=== PATIENT | male | born 1960 | race Caucasian/White ===

== ENCOUNTER 2018-06-17 08:58 | Day surgery (SDC) | payer OTHER ==
[~2018-06-17] VITALS: Ht 175.3 cm; Wt 82.6 kg
[~2018-06-17 08:58] MED LIST: ENALAPRIL MALEAT5 MG PO
--- NOTE | 2018-06-17 10:58 | NUR ---
06/17/18 1058 Sheets,Jenniffer 1047 PT ARRIVED TO PACU ON 2L VIA NC, PT REACTIVE TO TACTILE STIMULI. PERIOD OF APNEA NOTED, RN WOKE PT WITH VERBAL STIMULI AND ENCOURAGED PT TO DEEP BREATHE. PT REORINETED TO PACU. 1053 HOB INCREASED AND O2 REMOVED. PT ASLEEP OFF AND 0N, RESP EVEN AND UNLABORED. PT DENIES NAUSEA AND PAIN.
--- NOTE | 2018-06-18 11:43 | OR ---
[facility] [address] [place], [place] [address] Signed DATE OF OPERATION: 06/17/2018 SURGEON: Neris Coto MD PREOPERATIVE DIAGNOSES: 1. Episodic upper abdominal pain, possible clinical reflux symptoms. 2. Episode of lower abdominal pain suggestive of diverticulitis. 3. Diarrhea alternating with constipation. POSTOPERATIVE DIAGNOSES: 1. Small hiatal hernia. 2. Minimal proximal gastritis. 3. Gastric polyps (benign). 4. Minimal diverticular changes of sigmoid and two diminutive polyps. PROCEDURES: 1. Esophagogastroduodenoscopy with biopsy. 2. Total colonoscopy to cecum with cold morcellation polypectomy x2. ANESTHESIA: Intravenous sedation, fentanyl 50 mcg and Versed 5 mg (total). INDICATION: A 58-year-old white man, a patient of Richelle Jackosn FMP. He lives in [place], [place]. He underwent upper endoscopy and colonoscopy in 2012, 6 years ago. He is referred by Richelle Jackson FMP for consideration of recent groin and abdominal pain as well as diarrhea problems from time to time. In February, he noted groin pain, which radiated to the testicles. By April, pain was higher and almost disabling from time to time. This was on the left side. His urination was without problem. He is empirically treated with Bactrim for possible diverticular disease. He is not known to have nephrolithiasis. He has had no blood per rectum, but has had alternating diarrhea with constipation. He treated himself with Allerzyme, a proprietary medication, which was of uncertain benefit. His upper endoscopy and colonoscopy from 2012 showed a poor flap valve and a normal colon. He has no family history of colon, esophageal, or gastric cancer. He did have cholecystectomy in 2003. He is admitted at this time to undergo upper endoscopy and colonoscopy to better characterize his symptoms. The risks of bleeding, infection, and perforation were reviewed with him. He understands and wished to proceed. FINDINGS: Electronically Signed By: NERIS COTO MD 06/18/18 1143 PATIENT NAME: CELINA ESPINOZA OPERATIVE REPORT DATE OF : 64 REPORT #: [id number] PHYSICIAN: NERIS COTO MD PCP: RICHELLE JACKSON Stef-Christiana REPORT IS CONFIDENTIAL AND NOT TO BE RELEASED WITHOUT AUTHORIZATION [facility] [address] [place], [place] [address] Signed On upper endoscopy, he had a marginal flap valve, but no sign of large hiatal hernia. He certainly had no obvious esophagitis. There was mild proximal gastritis. Duodenum was normal. CLOtest was negative. On colonoscopy, the prep was quite good. Complete colonoscopy was undertaken of the cecum without question. There were few scattered diverticula of the sigmoid, but it was not extensive by any means. There were 2 small polyps, one in the low rectum and the other in the rectosigmoid, both of them benign, possibly even hyperplastic. DESCRIPTION OF PROCEDURE: The patient was brought to the endoscopy suite given topical Hurricaine spray hypopharyngeal anesthesia and placed in lateral decubitus position. A bite block was placed. After satisfactory sedation with full cardiopulmonary monitoring, an Olympus video upper endoscope passed in the hypopharynx. The vocal cords appeared normal. Scope was advanced to the esophagus. Throughout its length, it was normal. Scope was passed through the stomach, which was insufflated with air. Rugal folds appeared normal. The antrum appeared normal as did the pylorus. The scope was passed through it and into the duodenum, which was normal. Biopsies were taken of the duodenum to assess for celiac disease. The scope was withdrawn. A biopsy was taken of the antrum and more proximal stomach as there was some mild proximal gastritis, though not much. Retroflexed view showed a somewhat loose flap valve, but no sign of large hiatal hernia by any means. The scope was withdrawn to the distal esophagus and biopsies taken of the distal esophageal mucosa. Careful withdrawal of scope showed no other findings of concern. The vocal cords were normal. Plans were then made for colonoscopy. The table was rotated and additional sedation given. A digital rectal examination performed, which was normal. An Olympus video colonoscope was passed in the rectum and manipulated throughout the colon ultimately intubating the cecum itself. The ileocecal valve and appendiceal orifice were normal. Scope was withdrawn from that point. Examination showed no sign of abnormality other than a few scattered shallow diverticula of the left and sigmoid colon and two diminutive polyps, one in the rectosigmoid and other on retroflexed view in the low rectum. Both were excised with cold morcellation technique. Scope was removed and the patient was taken to the recovery room in good condition. CONCLUDING DIAGNOSIS: Minimal proximal gastritis. Minimal diverticular changes and 2 small innocuous polyps. It is unclear the source of the symptoms generally. We will offer Zantac 75 mg p.o. b.i.d. and offered to see the patient back in 4 to 6 weeks and review his progress. We additionally advised Citrucel or other fiber supplement one tablespoon daily. Electronically Signed By: NERIS COTO MD 06/18/18 1143 PATIENT NAME: CELINA ESPINOZA OPERATIVE REPORT DATE OF : 64 REPORT #: [id number] PHYSICIAN: NERIS COTO MD PCP: RICHELLE JACKSON FMP-Christiana REPORT IS CONFIDENTIAL AND NOT TO BE RELEASED WITHOUT AUTHORIZATION [address] [place] [address] Signed MD VELIA Browning/AMY /[id number] cc: BLAISE Dwyer Copies: RICHELLE JACKSON ~ Electronically Signed By: NERIS COTO MD 06/18/18 1143 PATIENT NAME: CELINA ESPINOZA OPERATIVE REPORT DATE OF : 64 REPORT #: [id number] PHYSICIAN: NERIS COTO MD PCP: RICHELLE JACKSON REPORT IS CONFIDENTIAL AND NOT TO BE RELEASED WITHOUT AUTHORIZATION
== END 2018-06-17 11:33 | disposition home or self-care (01) ==
LOC: DS 08:58 → OPS 08:58 → DS 10:00 → OPS 10:00
PROVIDERS: Surgery
PROC: 0DB68ZX Excision of Stomach, Via Natural or Artificial Opening Endoscopic, Diagnostic (ICD-10-PCS; 2018-06-17)
PROC: 0DB28ZX Excision of Middle Esophagus, Via Natural or Artificial Opening Endoscopic, Diagnostic (ICD-10-PCS; 2018-06-17)
PROC: 0DB38ZX Excision of Lower Esophagus, Via Natural or Artificial Opening Endoscopic, Diagnostic (ICD-10-PCS; 2018-06-17)
PROC: 0DBN8ZZ Excision of Sigmoid Colon, Via Natural or Artificial Opening Endoscopic (ICD-10-PCS; 2018-06-17)
PROC: 0DBP8ZZ Excision of Rectum, Via Natural or Artificial Opening Endoscopic (ICD-10-PCS; 2018-06-17)
PROC: 0DB98ZX Excision of Duodenum, Via Natural or Artificial Opening Endoscopic, Diagnostic (ICD-10-PCS; principal; 2018-06-17 10:00)
PROC: 0DB78ZX Excision of Stomach, Pylorus, Via Natural or Artificial Opening Endoscopic, Diagnostic (ICD-10-PCS; 2018-06-17 10:00)
DX: K63.5 Polyp of colon (principal); K62.1 Rectal polyp; K57.30 Diverticulosis of large intestine without perforation or abscess without bleeding; K29.50 Unspecified chronic gastritis without bleeding; K20.9 Esophagitis, unspecified; K44.9 Diaphragmatic hernia without obstruction or gangrene; K31.7 Polyp of stomach and duodenum; I10 Essential (primary) hypertension; Z98.890 Other specified postprocedural states
CPT/HCPCS: 88305; 99153; G0500; J2250; J3010; J7120

== ENCOUNTER 2024-04-25 05:55 | Day surgery (SDC) | payer OTHER ==
[2024-04-20 10:12] VITALS: BP 143/93
[~2024-04-25] VITALS: Ht 175.3 cm; Wt 73.6 kg
[~2024-04-25 05:55] MED LIST changes: +LACTATED RINGER'S 1,000 ML IV SCH
[2024-04-25 06:17] VITALS: BP 142/76
[2024-04-25] MEDS ORDERED: CEFAZOLIN SODIUM 2 GM/20 ML SYR IV SCH (07:00)
[2024-04-25] MEDS ORDERED: IBLOOD GLUCOSE TEST STRIP 1 EA TEST VI PRN ×2 (07:00→08:30)
[2024-04-25] MEDS ORDERED: HEParin SOD (PORCINE) 5,000 UNIT/0.5 ML SYR SUB-Q SCH (07:00)
[2024-04-25] MEDS ORDERED: LIDOCAINE HCL 1% 5 ML SDV INJ ONE (07:00)
[2024-04-25] MEDS ORDERED: propofoL 200 MG/20 ML VIAL ONE (07:16)
[2024-04-25] MEDS ORDERED: LIDOCAINE HCL 2% 20 MG/ML VIAL INJ ONE (07:16)
[2024-04-25] MEDS ORDERED: MIDAZOLAM HCL 2 MG/2 ML VIAL ONE (07:16)
[2024-04-25] MEDS ORDERED: ondansetron HCL 4 MG/2 ML VIAL ONE (07:16)
[2024-04-25] MEDS ORDERED: ACETAMINOPHEN 1,000 MG/100 ML VIAL ONE (07:16)
[2024-04-25] MEDS ORDERED: fentaNYL citrate 100 MCG/2 ML VIAL ONE (07:16)
[2024-04-25] MEDS ORDERED: SODIUM CHLORIDE 0.9% 20 ML IV ONE (07:17)
[2024-04-25] MEDS ORDERED: Ropivacaine HCl 0.5% 30 ML VIAL ONE (07:17)
[2024-04-25] MEDS ORDERED: DEXAMETHASONE SOD PHOS 4 MG/ML VIAL ONE (07:38)
[2024-04-25] MEDS ORDERED: KETOROLAC TROMETHAMINE 30 MG/ML VIAL ONE (07:38)
--- NOTE | 2024-04-25 07:47 | NUR ---
PT GONE FOR PROCEDURE. PROVIDED PRAYER.
[2024-04-25] MEDS ORDERED: PROCHLORPERAZINE EDISYLATE 10 MG/2 ML VIAL IV PRN (08:30)
[2024-04-25] MEDS ORDERED: fentaNYL citrate 50 MCG/ML SDV IV PRN (08:30)
[2024-04-25] MEDS ORDERED: NALOXONE HCL 0.4 MG SYR IV PRN ×2 (08:30→09:30)
[2024-04-25] MEDS ORDERED: droPERidol 5 MG/2 ML VIAL IV PRN (08:30)
[2024-04-25] MEDS ORDERED: HYDROmorphone HCL 1 MG/ML SYR IV PRN (08:30)
[2024-04-25] MEDS ORDERED: ondansetron HCL 4 MG/2 ML VIAL IV PRN (08:30)
[2024-04-25] MEDS ORDERED: LACTATED RINGER'S 1,000 ML IV ONE (08:59)
--- NOTE | 2024-04-25 09:26 | NUR ---
04/25/24 0926 Ronna Dominguez 0916-PATIENT ARRIVED TO PACU NONAROUSABLE ORAL AIRWAY IN PLACE 6L MASK RN DOING JAW THRUST TO MAINTAIN OPEN AIRWAY. RIGHT GROIN DRESSING INTACT. SR. HR 60'S. IVF INFUSING. 0920-PATIENT ON 6L MASK RR EVEN 100% PATIENT MAINTAINING AIRWAY WITH ORAL AIRWAY IN PLACE. 0923-PATIENT REMAINS NONAROUSABLE TO VERBAL AND TACTICLE STIMULI SLIGHTLY MOVES LEFT HAND. 6L MASK RR EVEN 100% ORAL AIRWAY IN PLACE
[2024-04-25] MEDS ORDERED: IBUPROFEN 600 MG TAB PO PRN (09:30)
[2024-04-25] MEDS ORDERED: ACETAMINOPHEN 500 MG TAB PO PRN (09:30)
[2024-04-25] MEDS ORDERED: OXYCODONE/APAP 7.5/325 TAB PO PRN (09:30)
[2024-04-25] MEDS ORDERED: LACTATED RINGER'S 1,000 ML IV SCH (09:30)
[2024-04-25] MEDS ORDERED: IBUPROFEN600 MG PO (09:33)
[2024-04-25] MEDS ORDERED: ACETAMINOPHEN500 MG PO (09:33)
[2024-04-25] MEDS ORDERED: OXYCODON-ACETA1 EAC2 PO (09:33)
[2024-04-25 09:59] VITALS: BP 111/79
[2024-04-25] MEDS ORDERED: SEVOFLURANE 250 ML BTL INH ONE (10:01)
--- NOTE | 2024-04-25 10:05 | NUR ---
4024 PT ARRIVED TO DAY SURGERY ROOM 3 VIA ERNSTACHER FROM PACU. REPORT TAKEN FROM ALEJANDRA BEVERLY. PT DROWSEY, BREATHING EQUAL AND UNLABORED. PT SPOUSE AT BEDSIDE. PT SPOUSE IS TAKING PRESCRIPTION TO PHARMACY. PT REPORTS NO PAIN OR NAUSEA AT THIS TIME. PT RESTING COMFORTABLY IN BED, PT HAS PUDDING AND WATER AT BEDSIDE. CALL LIGHT WITHIN REACH.
[2024-04-25 10:54] VITALS: BP 108/77
--- NOTE | 2024-04-25 11:05 | NUR ---
1055 HOURLY ROUNDING DONE ON PT. VITALS TAKEN. IV ASSESSED. PT REPORTS NO PAIN OR NAUSEA AT THIS TIME. PT RESTING IN BED WITH EYES CLOSED. PT HAS CALL LIGHT WITHIN REACH. PT REPORTS NO URGE TO VOID AT THIS TIME. PT ABLE TO TOLERATE PO WATER AND PUDDING. PUDDING AND WATER AT BEDSIDE.
[2024-04-25 11:47] VITALS: BP 118/79
--- NOTE | 2024-04-25 12:21 | NUR ---
1150 PT AMBULATES TO BATHROOM AND VOIDS 250MLS OF CLEAR YELLOW URINE. PT AMBULATES BACK TO ROOM AND CHANGES INTO CLOTHES. PT IN ROOM. 1200 IV DISCONTINUED FOR DISCAHRGE. DISCHARGE INFORMATION GONE OVER WITH PT AND . NO QUESTIONS AT THIS TIME. 1205 PT DISCHARGED FROM DAY SURGERY VIA WHEELCHAIR TO FRONT OF THE HOSPITAL TO PT'S 'S CAR.
--- NOTE | 2024-04-25 14:58 | EKG ---
[facility] [address] [facility] [place], [place] [address] Signed Sinus bradycardia Otherwise normal ECG No previous ECGs available Increased T wave amplitude in anterior leads Confirmed by Anh Toribio MD () on 04/25/2024 2:58:37 PM Electronically Signed By: ANH TORIBIO MD 04/25/24 1458 PATIENT NAME: CELINA ESPINOZA Electrocardiogram DATE OF : 64 PHYSICIAN: ANH TORIBIO MD REPORT #: [id number] REPORT IS CONFIDENTIAL AND NOT TO BE RELEASED WITHOUT AUTHORIZATION
--- NOTE | 2024-04-27 11:23 | PATH ---
[facility] [address] [facility] [place], [place] [address] Signed SPECIMEN(S): A LIPOMA OF THE CORD SPECIMEN SOURCE: A. LIPOMA OF THE CORD CLINICAL HISTORY: Right inguinal hernia sac FINAL PATHOLOGIC DIAGNOSIS: Hernia sac, right inguinal, herniorrhaphy: - Mature adipose tissue, clinically cord lipoma BRP MICROSCOPIC EXAMINATION: Histologic sections of all submitted blocks are examined by light microscopy. These findings, together with the gross examination, support the pathologic diagnosis. GROSS DESCRIPTION: The specimen, labeled and designated "Saadia Espinoza, " and designated on the requisition "lipoma of cord," is received in formalin and consists of 5.1 x 2.5 x 1.8 cm portion of yellow-steele multilobulated adipose tissue encased in a pink focally congested membranous tissue. The specimen is inked and serially sectioned revealing a yellow homogeneous cut surface. Enterostomal Nurse sections are submitted in (A1). FB (under the direct supervision of a pathologist) The Gross Description was prepared using a voice recognition system. The report was reviewed for accuracy; however, sound-alike word errors, addition and/or deletions may occur. If there is any question about this report, please contact Client Services. ADDITIONAL NOTES: Immunohistochemical and/or in situ hybridization studies if performed in this case included appropriate positive controls that reacted as expected. This test was developed and its performance characteristics determined by [facility]. It has not been cleared or approved by the U.S. Food and Drug Administration. The FDA has determined that such clearance or approval is not necessary. This test is used for clinical purposes. It should not be regarded as investigational or for research. [facility] is certified under the PATIENT NAME: CELINA ESPINOZA PATHOLOGY DATE OF : 64 REPORT #: [id number] PHYSICIAN: MANOLO WHITTAKER PCP: MOHINI ESPINOZA REPORT IS CONFIDENTIAL AND NOT TO BE RELEASED WITHOUT AUTHORIZATION [facility] [address] [place] [address] Signed Clinical Laboratory Improvement Amendments of 1988 (CLIA) as qualified to perform high complexity clinical laboratory testing. PERFORMING LABORATORY: Technical component was performed by [facility], [address] [place] [address] (CLIA# [id number]). Professional interpretation was performed by [facility], [address] [address] (CLIA# [id number]). Diagnostician: Alexandre Osorio MD Pathologist Electronically Signed 04/27/2024 Copies: ~ PATIENT NAME: CELINA ESPINOZA PATHOLOGY DATE OF : 64 REPORT #: [id number] PHYSICIAN: [facility] PCP: MOHINI ESPINOZA REPORT IS CONFIDENTIAL AND NOT TO BE RELEASED WITHOUT AUTHORIZATION
--- NOTE | 2024-05-01 15:12 | OR ---
[facility] [address] [place], [place] [address] Signed DATE OF OPERATION: 04/25/2024 SURGEON: Neris Coto MD PREOPERATIVE DIAGNOSIS: Right inguinal hernia. POSTOPERATIVE DIAGNOSES: 1. Right indirect inguinal hernia. 2. Large cord lipoma. PROCEDURES: 1. Excision of cord lipoma. 2. Repair of right inguinal hernia with implantation of Prolene mesh underlay technique. ANESTHESIA: General LMA, Marshall Alaniz CRNA and preoperative ilioinguinal and iliohypogastric nerve block and local anesthetic 10 mL of 0.25% Marcaine with epinephrine. 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 He was noted to have a bulge in the right groin upon evaluation by Dr. Sb Bentley at [facility]. Right groin ultrasound confirmed inguinal hernia. He notes that it enlarges when he strains and can be uncomfortable. He is admitted at this time to undergo repair of the hernia. He understands the risk of bleeding, infection, recurrence and other unforeseen complications including chronic pain and other unforeseen complications. Understanding this, he wished to proceed. FINDINGS: A relatively large cord lipoma was identified and excised also. He had an indirect hernia of a pantaloon type (combined direct and indirect hernia). Invagination of the herniated material was most appropriate and implantation of Prolene mesh in underlay technique undertaken as well. Cord structures were preserved as was a dominant ilioinguinal nerve branch. He tolerated the procedure well. Blood loss was minimal. PROCEDURE IN DETAIL: The patient was brought to the operating room, given a general LMA type anesthetic. He has been given an ilioinguinal and iliohypogastric nerve block in the preop anesthesia area. After general endotracheal anesthesia, the lower abdomen was clipped and prepared with chlorhexidine solution and draped sterilely. Preoperative antibiotic Ancef had Electronically Signed By: NERIS COTO MD 05/01/24 1512 PATIENT NAME: CELINA ESPINOZA OPERATIVE REPORT DATE OF : 64 REPORT #: [id number] PHYSICIAN: NERIS COTO MD PCP: MOHINI ESPINOZA REPORT IS CONFIDENTIAL AND NOT TO BE RELEASED WITHOUT AUTHORIZATION [facility] [address] [place], [place] [address] Signed been given as well as sequential compression device stockings and heparin subcutaneously administered. A small incision was made cephalad to the pubic tubercle on the right side. Dissection was carried through the subcutaneous tissue with electrocautery. The external oblique was identified and incised along its fibers revealing the underlying cord structures and ilioinguinal nerve. The nerve was left in situ with the cord structures on this occasion initially and later freed up more fully. The cord was mobilized from the floor and examination showed there to be a bulky lipomatous mass of the cord. It was dissected free from the cord, secured at its base and ligated with 2-0 silk suture. Further dissection of the cord identified an indirect hernia sac associated with the cord in the anterior medial aspect. There was a defect in the floor medial to the inferior epigastric vessels, considered a small direct hernia as well. The broad-base of the indirect hernia was such that invagination of it rather than high ligation was deemed most advisable. Invagination showed complete reduction including that of a direct defect. It was considered possible to repair the hernia without mesh, however, given the attenuated fibers of the floor, mesh implant was deemed most advisable. The attenuated fibers of the fascia of the transversalis were incised with electrocautery. Allis clamps applied to the tendon of the transversus abdominis. The segment of Prolene mesh was cut to an elliptical configuration and secured in an underlay technique with interrupted 2-0 Prolene sutures. A defect was cut in the graft to accommodate the cord. The tails of the graft were secured laterally. The area closest to the cord in the medial inferior aspect was additionally secured with Prolene suture. The cord was snug, though not tight in relation to the graft and the repair. Care was taken to avoid incorporation of the ilioinguinal nerve branch. 10 mL of 0.25% Marcaine with epinephrine was injected locally. Cord was replaced in the canal as was the ilioinguinal nerve which had clearly been unharmed. The external oblique was reapproximated with running 2-0 Vicryl suture. Cyrus layer was reapproximated with interrupted 3-0 Vicryl after irrigation and skin closed with running subcuticular 3-0 Vicryl. Steri-Strips were applied as was an Acticoat dressing. The patient tolerated the procedure well. Blood loss was minimal. Complications none. MD VELIA Browning/AMY /[id number] cc: ITALO Escobar Electronically Signed By: NERIS COTO MD 05/01/24 1512 PATIENT NAME: CELINA ESPINOZA OPERATIVE REPORT DATE OF : 64 REPORT #: [id number] PHYSICIAN: NERIS COTO MD PCP: MOHINI ESPINOZA REPORT IS CONFIDENTIAL AND NOT TO BE RELEASED WITHOUT AUTHORIZATION [address] [address] Signed Rosa Bentley MD Copies: ROSA BENTLEY DMD ~ Electronically Signed By: NERIS COTO MD 05/01/24 1512 PATIENT NAME: CELINA ESPINOZA OPERATIVE REPORT DATE OF : 64 REPORT #: [id number] PHYSICIAN: NERIS COTO MD PCP: MOHINI ESPINOZA REPORT IS CONFIDENTIAL AND NOT TO BE RELEASED WITHOUT AUTHORIZATION
== END 2024-04-25 12:06 | disposition home or self-care (01) ==
LOC: DS 05:55
PROVIDERS: ATTEND Surgery
PROC: 0YU50JZ Supplement Right Inguinal Region with Synthetic Substitute, Open Approach (ICD-10-PCS; principal; 2024-04-25 07:30)
DX: K40.90 Unilateral inguinal hernia, without obstruction or gangrene, not specified as recurrent (principal); D17.6 Benign lipomatous neoplasm of spermatic cord; I10 Essential (primary) hypertension; Z79.899 Other long term (current) drug therapy; Z90.49 Acquired absence of other specified parts of digestive tract
CPT/HCPCS: 00920; 93005; 93010; C1781; J0131; J0690; J1100; J1644; J1885; J2250; J2405; J2704; J2795; J3010; J7121

== ENCOUNTER 2025-03-28 18:15 | Emergency (ER) | payer OTHER ==
[~2025-03-28] VITALS: Ht 175.3 cm; Wt 82.0 kg
--- NOTE | ~2025-03-28 | HP ---
[facility] [address] [place], [place] [address] Draft ADMISSION DATE: 03/28/2025 CHIEF COMPLAINT: Nasal trauma. HISTORY: Celina is a 65-year-old man, who suffered a nasal, right facial/orbital injury five days ago. He was loading [place] trailer and the gait hit him in the right side of his nose, face, orbit. He went to the ER at [facility], saw Dr. Nicole. A CAT scan was performed showing a nasal bone and nasal septal fracture and a small right orbital floor blowout fracture. He is here for otolaryngologic evaluation, not having any visual symptoms at all, double vision or blurry vision. He does have some small abrasions on his nose and complaining of a crooked nose deviated to the left side. Breathing well through the nasal passages. Blowing out some clotted blood, but this is reducing. PAST HISTORY/REVIEW OF SYSTEMS: He does have some hypertension, currently not treated medically. Otherwise healthy. ALLERGIES: No allergies to medications. MEDICATIONS: No current medications. PAST SURGICAL HISTORY: Pyloric stenosis in 1962, gallbladder cyst in 2003, hernia in 2023. SOCIAL HISTORY: Lives in [place], [place]. . No alcohol or tobacco. FAMILY HISTORY: Unremarkable. PHYSICAL EXAMINATION: VITAL SIGNS: Stable. Afebrile. GENERAL: Well-developed, well-nourished male, no distress. Examined with his , Jenniffer, present. HEAD AND NECK: He has obvious nasal dorsal deformity to the left side, very tender. Some swelling. Some abrasions on the nasal dorsum. Intranasal exam is unremarkable. The septum is midline and nonobstructive. The orbital exam, extraocular movements intact. Vision intact. No double vision. No ecchymosis. Scleral, no scleral PATIENT NAME: CELINA ESPINOZA HISTORY AND PHYSICAL DATE OF : 64 REPORT #: [id number] PHYSICIAN: DEVONTE DOLL MD PCP: MOHINI ESPINOZA REPORT IS CONFIDENTIAL AND NOT TO BE RELEASED WITHOUT AUTHORIZATION [facility] [address] [place], [place] [address] Draft ecchymosis. Head and neck exam otherwise unremarkable. CHEST: Clear. HEART: Regular rate and rhythm. ABDOMEN: Benign. EXTREMITIES: Benign. NEUROLOGIC: Grossly intact. REVIEW OF RECORDS: An ER note, 03/28/2025, from Radu Nicole is reviewed. RADIOGRAPHIC STUDIES: He had a maxillofacial CT from [facility], 03/28/2025. This shows a very small right orbital floor blowout fracture and also a comminuted, displaced nasal bone fracture involving the anterior septum. I have reviewed Dr. Charly Rodríguez's report of this CAT scan and showed copies to the patient. IMPRESSION: Nasal septal fracture. RECOMMENDATION: Closed reduction. He is requesting an anesthetic, so we will schedule him at [facility] tomorrow, April 03, in the a.m. for general anesthetic and outpatient closed reduction of nasal fracture. The risks of surgery including bleeding, infection, continued nasal deformity, nasal obstruction have all been explained and accepted. Devonte Doll MD GC/MODL /[id number] cc: MD Mohini Short, MEDICAL RECRUITER PATIENT NAME: CELINA ESPINOZA HISTORY AND PHYSICAL DATE OF : 64 REPORT #: [id number] PHYSICIAN: DEVONTE DOLL MD PCP: MOHINI ESPINOZA REPORT IS CONFIDENTIAL AND NOT TO BE RELEASED WITHOUT AUTHORIZATION [facility] [address] [place] [address] Draft Copies: MOHINI ESPINOZA ~ PATIENT NAME: CELINA ESPINOZA HISTORY AND PHYSICAL DATE OF : 64 REPORT #: [id number] PHYSICIAN: DEVONTE DOLL MD PCP: MOHINI ESPINOZA REPORT IS CONFIDENTIAL AND NOT TO BE RELEASED WITHOUT AUTHORIZATION
[~2025-03-28 18:15] MED LIST changes: +ACETAMINOPHEN500 MG PO; +IBUPROFEN600 MG PO; -LACTATED RINGER'S 1,000 ML IV SCH; +OXYCODON-ACETA1 EAC2 PO
[2025-03-28] MEDS ORDERED: DIPHTH,PERTUSS(ACELL),TET VAC 0.5 ML SYRINGE IM ONE (18:45)
[2025-03-28] MEDS ORDERED: MORPHINE SULFATE 4 MG/ML VIAL IV ONE (18:45)
[2025-03-28 18:51] LABS: BASOPHILS 0.4 % (0.2-1.2); EOSINOPHILS 0.5 % (0.8-7.0); LYMPHOCYTES 12.0 % (21.8-53.1); MCH 32.1 PG (25.7-32.2); MCHC 35.5 g/dL (32.3-36.5); MCV 90.4 fL (79.0-92.2); MONOCYTES 4.4 % (5.3-12.2); NEUTROPHILS 82.4 % (34.0-67.9); RBC 4.89 M/uL (4.63-6.08)
[2025-03-28 19:02] LABS: INR 1.0 (0.80-1.30); PROTIME 12.5 Sec (11.2-14.2)
[2025-03-28 19:12] LABS: ALCOHOL, MEDICAL <3 ng/dL (<3); ALT (SGPT) 30 U/L (14-59); AST (SGOT) 15 U/L (15-37); GLOMERULAR FILTRATION RATE,EST 87 mL/min (>60); PROTEIN, TOTAL 7.2 g/dL (6.4-8.2); UREA NITROGEN 22 mg/dL (7-18)
[2025-03-28] MEDS ORDERED: HYDROCODON-ACE1 EA10 PO (20:33)
[2025-03-28] MEDS ORDERED: HYDROCODONE BIT/ACETAMINOPHEN 5/325 MG 1 TAB HOME.PACK PO ONE (21:00)
[2025-03-28 21:05] VITALS: BP 185/98
== END 2025-03-28 21:05 | disposition home or self-care (01) ==
LOC: ED 18:15
PROVIDERS: Emergency Medicine
DX: S02.31XA Fracture of orbital floor, right side, initial encounter for closed fracture (principal); S02.831A Fracture of medial orbital wall, right side, initial encounter for closed fracture; S02.2XXA Fracture of nasal bones, initial encounter for closed fracture; W55.22XA Struck by cow, initial encounter
CPT/HCPCS: 36415; 70450; 70486; 71045; 72125; 73080; 80053; 80307; 85025; 85610; 96374; 96375; 99284-25; A9270; G0480; J2270; J2405

== ENCOUNTER 2025-04-03 09:01 | Day surgery (SDC) | payer OTHER ==
[~2025-04-03] VITALS: Ht 175.3 cm; Wt 84.0 kg
--- NOTE | ~2025-04-03 | OR ---
[facility] [address] [facility] [place], [place] [address] Draft DATE OF OPERATION: 04/03/2025 SURGEON: Devonte Doll MD PREOPERATIVE DIAGNOSIS: Nasal fracture, displaced. POSTOPERATIVE DIAGNOSIS: Nasal fracture, displaced. PROCEDURE: Closed reduction of nasal fracture with splinting. ANESTHESIA: General LMA; WRAPPER HAND, Jazmin. PREOPERATIVE HISTORY: Mr. Espinoza is a 65-year-old man who suffered a nasal fracture about six days ago when a cow kicked a trailer gate and it hit his nose. He has a deformed displaced nasal bone fracture to the left side. Unable to correct this in the office and he was taken to the operating room for closed reduction of nasal fracture. PROCEDURE AND FINDINGS: After informed consent, the patient was taken to the operating room, placed in supine position where general LMA anesthesia was induced. The patient and procedure were verified. The nasal dorsum was inspected, deviated to the left side. Digital palpation externally corrected the deformity, but it was fairly springy and moved back laterally to the left. Ligament elevator was placed on the right side to elevate the right nasal bone and this corrected the deformity. Multiple flexible splint placed on the nasal dorsum to correct and support the reduction. There was minimal bleeding. The patient was awakened, extubated, transported to recovery room in good condition. COMPLICATIONS: None. PACKING: None. DRAINS: None. PATIENT NAME: CELINA ESPINOZA OPERATIVE REPORT DATE OF : 64 REPORT #: [id number] PHYSICIAN: DEVONTE DOLL MD PCP: MOHINI ESPINOZA REPORT IS CONFIDENTIAL AND NOT TO BE RELEASED WITHOUT AUTHORIZATION [address] [place] [address] Draft SPECIMEN: None. BLOOD LOSS: Minimal. Devonte Doll MD GC/AMY /[id number] Copies: ~ PATIENT NAME: ABDIRAHMANCELINA DELEON NETO OPERATIVE REPORT DATE OF : 64 REPORT #: [id number] PHYSICIAN: DEVONTE DOLL MD PCP: MOHINI ESPINOZA REPORT IS CONFIDENTIAL AND NOT TO BE RELEASED WITHOUT AUTHORIZATION
[~2025-04-03 09:01] MED LIST changes: +HYDROCODON-ACE1 EA10 PO; +IBLOOD GLUCOSE TEST STRIP 1 EA TEST VI PRN; +LACTATED RINGER'S 1,000 ML IV SCH; +LIDOCAINE 1% W/ EPI 1:100,000 20 ML MDV ONE; +LIDOCAINE HCL 1% 5 ML SDV INJ ONE; +OXYMETAZOLINE HCL 30 ML BTL NAS SCH
[2025-04-03 09:15] VITALS: BP 133/82
[2025-04-03] MEDS ORDERED: fentaNYL citrate 100 MCG/2 ML VIAL ONE (10:10)
[2025-04-03] MEDS ORDERED: LIDOCAINE HCL 2% 5 ML SDV ONE (10:10)
[2025-04-03] MEDS ORDERED: KETOROLAC TROMETHAMINE 30 MG/ML VIAL ONE (10:18)
--- NOTE | 2025-04-03 10:45 | NUR ---
04/03/25 1045 Sheets,Jenniffer 1035 PT ARRIVED TO PACU ON 6L VIA MASK AND ORAL AIRWAY IN PLACE. RESP EVEN AND UNLABORED BUT SLOW.
--- NOTE | 2025-04-03 11:00 | NUR ---
PT TO DS FROM PACU VIA STRETCHER. PT REPORTS NO PAIN OR NAUSEA AT THIS TIME. PT ON RA W/O2 >90% VIA PULSE OX. RESPIRATIONS EVEN AND UNLABORED, NO SIGNS OF DISTRESS. CALL LIGHT WITHIN REACH. ICE WATER AND PUDDING PROVIDED. PT TOLERATING WITHOUT DIFFICULTY SWALLOWING. PT AT BEDSIDE.
[2025-04-03 11:04] VITALS: BP 147/89
--- NOTE | 2025-04-03 11:37 | NUR ---
IN PT ROOM FOR PAIN ASSESSMENT. PT TOLERATED ALL ORALS WITHOUT ONSET OF NAUSEA. PT CONTINUES TO REPORT NO PAIN. CALL LIGHT WITHIN REACH. PT STATES NO FURTHER NEEDS OR QUESTIONS AT THIS TIME. PT AT BEDSIDE.
[2025-04-03 11:51] VITALS: BP 144/90
--- NOTE | 2025-04-03 11:55 | NUR ---
IN PT ROOM FOR ASSESSMENT AND VS. NO ACUTE CHANGES FROM PREVIOUS ASSESSMENT. PT EDUCATED ABOUT NOT BENDING OVER, STRAINING, OR INCREASING HEAD PRESSURE WHEN GETTING DRESSED. PT AND PT STATE VERBAL UNDERSTANDING. PT GETTING DRESSED AT THIS TIME. PT ASSISTING. CALL LIGHT WITHIN REACH.
--- NOTE | 2025-04-03 12:08 | NUR ---
IN PT ROOM FOR DC EDUCATION. PT AND PT STATE VERBAL UNDERSTANDING AND NO FURTHER QUESTIONS OR NEEDS AT THIS TIME. PT OFF OF UNIT VIA WC. ALL BELONGINGS IN PT POSSESSION. PAPER TAPE PROVIDED IN CASE NEED FOR REINFORCEMENT OF DRESSING AND ICE WATER PROVIDED. PT AND PT STATE NO FURTHER NEEDS OR QUESTIONS AT THIS TIME.
[2025-04-03] MEDS ORDERED: SEVOFLURANE 250 ML BTL INH ONE (17:01)
--- NOTE | 2025-04-04 15:39 | HP ---
[facility] [address], [place] [address] Signed ADMISSION DATE: 03/28/2025 CHIEF COMPLAINT: Nasal trauma. HISTORY: Celina is a 65-year-old man, who suffered a nasal, right facial/orbital injury five days ago. He was loading [place] trailer and the gait hit him in the right side of his nose, face, orbit. He went to the ER at [facility], saw Dr. Nicole. A CAT scan was performed showing a nasal bone and nasal septal fracture and a small right orbital floor blowout fracture. He is here for otolaryngologic evaluation, not having any visual symptoms at all, double vision or blurry vision. He does have some small abrasions on his nose and complaining of a crooked nose deviated to the left side. Breathing well through the nasal passages. Blowing out some clotted blood, but this is reducing. PAST HISTORY/REVIEW OF SYSTEMS: He does have some hypertension, currently not treated medically. Otherwise healthy. ALLERGIES: No allergies to medications. MEDICATIONS: No current medications. PAST SURGICAL HISTORY: Pyloric stenosis in 1962, gallbladder cyst in 2003, hernia in 2023. SOCIAL HISTORY: Lives in [place], [place]. . No alcohol or tobacco. FAMILY HISTORY: Unremarkable. PHYSICAL EXAMINATION: VITAL SIGNS: Stable. Afebrile. GENERAL: Well-developed, well-nourished male, no distress. Examined with his , Jenniffer, present. HEAD AND NECK: He has obvious nasal dorsal deformity to the left side, very tender. Some swelling. Some abrasions on the nasal dorsum. Intranasal exam is unremarkable. The septum is midline and nonobstructive. The orbital exam, extraocular movements intact. Vision intact. No double vision. No ecchymosis. Scleral, no scleral Electronically Signed By: DEVONTE DOLL MD 04/03/25 1057 PATIENT NAME: CELINA ESPINOZA HISTORY AND PHYSICAL DATE OF : 64 REPORT #: [id number] PHYSICIAN: DEVONTE DOLL MD PCP: MOHINI ESPINOZA REPORT IS CONFIDENTIAL AND NOT TO BE RELEASED WITHOUT AUTHORIZATION [facility] [address], [place] [address] Signed ecchymosis. Head and neck exam otherwise unremarkable. CHEST: Clear. HEART: Regular rate and rhythm. ABDOMEN: Benign. EXTREMITIES: Benign. NEUROLOGIC: Grossly intact. REVIEW OF RECORDS: An ER note, 03/28/2025, from Radu Nicole is reviewed. RADIOGRAPHIC STUDIES: He had a maxillofacial CT from [facility], 03/28/2025. This shows a very small right orbital floor blowout fracture and also a comminuted, displaced nasal bone fracture involving the anterior septum. I have reviewed Dr. Charly Rodríguez's report of this CAT scan and showed copies to the patient. IMPRESSION: Nasal septal fracture. RECOMMENDATION: Closed reduction. He is requesting an anesthetic, so we will schedule him at [facility] tomorrow, April 03, in the a.m. for general anesthetic and outpatient closed reduction of nasal fracture. The risks of surgery including bleeding, infection, continued nasal deformity, nasal obstruction have all been explained and accepted. Devonte Doll MD GC/RYLANL /[id number] cc: MD Moihni Short FNP Electronically Signed By: DEVONTE DOLL MD 04/03/25 1057 PATIENT NAME: CELINA ESPINOZA HISTORY AND PHYSICAL DATE OF : 64 REPORT #: [id number] PHYSICIAN: DEVONTE DOLL MD PCP: MOHINI ESPINOZA REPORT IS CONFIDENTIAL AND NOT TO BE RELEASED WITHOUT AUTHORIZATION [facility] [address] [place] [address] [place], [place] [address] Signed Copies: MOHINI ESPINOZA ~ Electronically Signed By: DEVONTE DOLL MD 04/03/25 1057 PATIENT NAME: CELINA ESPINOZA NETO HISTORY AND PHYSICAL DATE OF : 64 REPORT #: [id number] PHYSICIAN: DEVONTE DOLL MD PCP: MOHINI ESPINOZA REPORT IS CONFIDENTIAL AND NOT TO BE RELEASED WITHOUT AUTHORIZATION
== END 2025-04-03 12:10 | disposition home or self-care (01) ==
LOC: DS 09:01
PROVIDERS: ATTEND Otolaryngology
PROC: 0NSB34Z Reposition Nasal Bone with Internal Fixation Device, Percutaneous Approach (ICD-10-PCS; principal; 2025-04-03 10:30)
DX: S02.2XXA Fracture of nasal bones, initial encounter for closed fracture (principal); W55.22XA Struck by cow, initial encounter; I10 Essential (primary) hypertension
CPT/HCPCS: 00160; J1885; J2003; J2704; J3010; J7121